=== PATIENT | male | born 2000 | race Caucasian/White ===

== ENCOUNTER 2018-05-19 02:06 | Emergency (ER) | payer OTHER ==
[2018-05-19] MEDS ORDERED: TYLENOL 325 MG PO STA (02:34)
[2018-05-19] MEDS ORDERED: TYLENOL 325 MG ONE (02:35)
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
[2018-05-19] MEDS ORDERED: Norco 10/325 MG Tablet PO ONE ×2 (03:35→03:36)
[2018-05-19] MEDS ORDERED: Norco 10/325 MG Tablet ONE (03:40)
[2018-05-19 03:48] VITALS: O2SAT 96
[2018-05-19 04:27] VITALS: BP 132/84; PULSE 69
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
== END 2018-05-19 04:33 | disposition home or self-care (01) ==
LOC: ED 02:06
DX: S02.19XA Other fracture of base of skull, initial encounter for closed fracture (principal); S02.82XA Fracture of other specified skull and facial bones, left side, initial encounter for closed fracture; V47.6XXA Car passenger injured in collision with fixed or stationary object in traffic accident, initial encounter
CPT/HCPCS: 70450; 70486; 99284; A9270-GY